=== PATIENT | female | born 1975 | race African-American/Black ===

== ENCOUNTER 2017-07-02 07:55 | Emergency (ER) | payer MEDICAID ==
[~2017-07-02] VITALS: Ht 172.7 cm; Wt 87.0 kg
[~2017-07-02 07:55] MED LIST: DILANTIN; TOPAMAX; ZOLOFT
[2017-07-02] MEDS ORDERED: ACETAMINOPHEN 325MG TABLET PO ONE (09:00)
[2017-07-02 09:34] LABS: GLUCOSE URINE NEGATIVE (NEGATIVE); KETONES URINE NEGATIVE (NEGATIVE); LEUKOCYTE ESTERASE URINE 1+ (NEGATIVE); NITRITE URINE NEGATIVE (NEGATIVE); OCCULT BLOOD URINE NEGATIVE (NEGATIVE); PROTEIN URINE NEGATIVE (NEGATIVE); SPECIFIC GRAVITY URINE 1.026 (1.005-1.030); UROBILINOGEN URINE 0.2 E.U./dL (0.2-1.0)
[2017-07-02 09:37] LABS: CLARITY URINE CLEAR (CLEAR); COLOR URINE YELLOW (YELLOW)
[2017-07-02 10:14] VITALS: BP 129/81
== END 2017-07-02 10:14 | disposition home or self-care (01) ==
LOC: ER 08:19
DX: J06.9 Acute upper respiratory infection, unspecified (principal); N39.0 Urinary tract infection, site not specified; R56.9 Unspecified convulsions; Z91.048 Other nonmedicinal substance allergy status
CPT/HCPCS: 81001; 99283